=== PATIENT | female | born 1975 | race Two or more races ===

== ENCOUNTER 2019-10-26 04:30 | Emergency (ER) | payer SELFPAY ==
[~2019-10-26] VITALS: Ht 170.2 cm; Wt 66.7 kg
[2019-10-26 04:50] VITALS: BP 139/60
== END 2019-10-26 05:50 | disposition left against medical advice (07) ==
LOC: ER 04:30
DX: R11.2 Nausea with vomiting, unspecified (principal); Z53.21 Procedure and treatment not carried out due to patient leaving prior to being seen by health care provider